=== PATIENT | male | born 1960 | race Caucasian/White ===

== ENCOUNTER 2021-03-03 10:45 | Day surgery (SDC) | payer BC ==
[2021-03-01 08:20] VITALS: BMI 33.0
[~2021-03-03 10:45] MED LIST: ALBUTEROL NEB (CONC) 2.5 MG/0.5 ML INHALATION ONE; ATROPINE SULFATE 0.4 MG/ML 1 ML VIAL IM ONE; IV FLUID CONTINUATION 1,000 ML IV ONE; LACTATED RINGERS 1,000 ML IV SCH; LIDOCAINE 2% (PF) 20 MG/ML 5 ML VIAL INHALATION ONE; LIDOCAINE VISCOUS 300 MG/15 ML CUP MUCOUS MEM ONE
[2021-03-03 11:20] VITALS: RESP 16; TEMP 98.4
[2021-03-03] MEDS: LACTATED RINGERS 1,000 ML IV SCH ×2 (11:34→12:02)
[2021-03-03 11:38] LABS: Glucose,Whole Blood 105 mg/dL (75-99)
[2021-03-03] MEDS ORDERED: MIDAZOLAM 2 MG/2 ML VIAL ONE (12:03)
[2021-03-03] MEDS ORDERED: fentaNYL (PF) 50 MCG/ML 2 ML AMP ONE (12:03)
[2021-03-03] MEDS ORDERED: LIDOCAINE 1% INJ 10MG/ML (20 ML MDV) ONE (12:03)
[2021-03-03] MEDS ORDERED: PROPOFOL 10 MG/ML 20 ML VIAL IV ONE (12:03)
[2021-03-03] MEDS ORDERED: KETAMINE 10 MG/ML 20 ML VIAL ONE (12:03)
[2021-03-03] MEDS ORDERED: LIDOCAINE 2% INJ 20 MG/ML INTRATRACH ONE (12:16)
[2021-03-03 12:35] VITALS: PULSE 82
[2021-03-03 12:50] VITALS: BP 129/75
[2021-03-03 16:41] LABS: Appearance,BF Hazy
[2021-03-03 16:42] LABS: Nucleated Cells, Body Fluid 67 /uL; RBC, Body Fluid 277 /uL
[2021-03-03 16:46] LABS: Mononuclear WBC,Body Fluid 21 %; Polynuclear WBC,Body Fluid 78 %; Total Cells Counted,Body Fluid 100
--- NOTE | 2021-03-03 16:52 | PCN ---
PROCEDURE NOTE PROCEDURE PERFORMED: Bronchoscopy, airway examination, therapeutic lavage, BAL right middle lobe. PREOPERATIVE DIAGNOSIS: Hemoptysis. POSTOP DIAGNOSIS: Hemoptysis. OPERATORS: Dr. Odom, Dr. Tavarez. There was informed consent and universal timeout. ANESTHESIA: Anesthesia provided general anesthesia. The patient's procedure was done in room #2 endoscopy. DESCRIPTION OF PROCEDURE: After the patient was adequately sedated and being fully monitored, the bronchoscope was inserted through the right nostril. It passed through the right nasopharynx into the oropharynx. The hypopharynx was identified. The anterior commissure, true cords, false cords, arytenoids, piriform sinuses, right and left, vallecula, and epiglottis, all appeared normal. Next, after topicalization, the bronchoscope was pushed through the glottic opening into the trachea. The trachea itself appeared normal. There was no bleeding. There was no mass or tumor. The tracheal umesh was sharp. The right and left mainstem was topicalized. The right upper lobe and its 3 segments, right middle lobe and its 2 segments and the right lower lobe and its 5 segments all appeared normal. There was no bleeding, mass, tumor, or any other abnormality noted. On the left side, the left upper lobe proper and its 2 segments, the lingula and its 2 segments and the left lower lobe and its 4 segments all appeared normal. Again, no mass tumor and/or gross abnormality noted. There was no bleeding. The patient tolerated the procedure well up to this point. The bronchoscope was wedged into the right middle lobe. We did a BAL. The fluid will be sent for analysis. There was no additional recommendations. The bronchoscope was withdrawn and the patient will be recovered. The patient tolerated the procedure very well. MMODL / IJN: [id number] /
== END 2021-03-03 13:04 | disposition home or self-care (01) ==
LOC: ORWHC2ENDO 10:45
PROVIDERS: ATTEND Internal Medicine Critical Care Medicine
DX: R04.2 Hemoptysis (principal); K21.9 Gastro-esophageal reflux disease without esophagitis; Z79.82 Long term (current) use of aspirin; Z86.73 Personal history of transient ischemic attack (TIA), and cerebral infarction without residual deficits; Z87.891 Personal history of nicotine dependence
CPT/HCPCS: 31624; 88108; 88305; 89050; 87252; 87070; 87205; 87116; 87102; 87206; J2001 ×2; J2250; J0461; J3010; J2704; 87496; 87498; 87502; 87529; 87634; 87798

== ENCOUNTER 2022-12-02 05:43 | Day surgery (SDC) | payer BC ==
[2022-11-30 15:10] VITALS: BMI 31.5
[~2022-12-02 05:43] MED LIST changes: -ALBUTEROL NEB (CONC) 2.5 MG/0.5 ML INHALATION ONE; -ATROPINE SULFATE 0.4 MG/ML 1 ML VIAL IM ONE; -IV FLUID CONTINUATION 1,000 ML IV ONE; +LIDOCAINE 1% (10MG/ML) FOR IV START INTRADERMA PRN; -LIDOCAINE 2% (PF) 20 MG/ML 5 ML VIAL INHALATION ONE; -LIDOCAINE VISCOUS 300 MG/15 ML CUP MUCOUS MEM ONE
[2022-12-02 06:42] LABS: Glucose,Whole Blood 143 mg/dL (70-110)
[2022-12-02 06:43] VITALS: TEMP 97
[2022-12-02] MEDS ORDERED: PROPOFOL 10 MG/ML 20 ML VIAL IV ONE (07:00)
[2022-12-02] MEDS ORDERED: fentaNYL (PF) 50 MCG/ML 2 ML AMP ONE (07:00)
[2022-12-02] MEDS ORDERED: LIDOCAINE 2% INJ 20 MG/ML (2 ML VIAL) ONE (07:00)
[2022-12-02] MEDS ORDERED: MIDAZOLAM 2 MG/2 ML VIAL ONE (07:00)
--- NOTE | 2022-12-02 07:26 | P.PCN ---
Date of Procedure: 12/02/22 Procedure(s) Performed: Brief history: Patient is a pleasant 62-year-old white male scheduled for an elective upper endoscopy as well as colonoscopy as a part of evaluation of epigastric pain for the last 1 year duration. Also has prior history of colon polyps. Procedure performed: Esophagogastroduodenoscopy with biopsy and cautery using a gold probe Colonoscopy with biopsy Preoperative diagnosis: Epigastric pain History of colon polyps Anesthesia: MAC Procedure: After informed consent was obtained from the patient was brought into the endoscopy unit and IV sedation was administered by anesthesia under continuous monitoring. Initially upper endoscopy was done. The Olympus GF 160 video endos cope was inserted inserted into the mouth and esophagus intubated without any difficulty and was gradually advanced into the stomach and duodenum and carefully examined. The bulb and second part of the duodenum appeared normal. 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 There was mild gastritis noted and biopsies were done from this area. The cause of the body, cardia and fundus appeared normal. The scope was then withdrawn into the esophagus. Small hiatal hernia noted. The GE junction was located at 40 cm to the incisors. It appeared regular with erosions consistent with LA grade B reflux esophagitis.. Rest of the esophagus appeared normal. Patient tolerated the procedure well. At this time the patient continued to remain sedation. Initial digital rectal examination was normal. Olympus CF 160 video colonoscope was then inserted into the rectum and gradually advanced to the cecum without any difficulty. Careful examination was performed as the scope was gradually being withdrawn. The prep was excellent. The cecum, ascending colon, appeared normal. In the transverse colon there was a millimeters polyp that was removed by cold biopsy. Rest of the transverse colon, descending colon, sigmoid colon and rectum appeared normal. Scattered sigmoid diverticulosis seen. Retroflexion was performed in the rectum and no lesions were noted. Patient tolerated the procedure well. Impression: 1. 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 Colonoscopy revealed a 3 mm transverse colon polyp status post cold biopsy and scattered sigmoid diverticulosis Recommendations: Findings of this examination were discussed with the patient as well as his family. He was advised to follow with the biopsy results. In the meantime recommended a trial of Pepcid 20 mg twice daily and follow antireflux measures. Repeat colonoscopy in 5 years because of the history of colon polyps
[2022-12-02 07:46] VITALS: BP 131/75; PULSE 67; RESP 18
== END 2022-12-02 08:03 | disposition home or self-care (01) ==
LOC: ORWHC2ENDO 05:43
PROVIDERS: ATTEND Internal Medicine Gastroenterology
DX: Z12.11 Encounter for screening for malignant neoplasm of colon (principal); K29.50 Unspecified chronic gastritis without bleeding; D12.3 Benign neoplasm of transverse colon; Q27.30 Arteriovenous malformation, site unspecified; K44.9 Diaphragmatic hernia without obstruction or gangrene; K57.30 Diverticulosis of large intestine without perforation or abscess without bleeding; I10 Essential (primary) hypertension; K21.00 Gastro-esophageal reflux disease with esophagitis, without bleeding; F10.90 Alcohol use, unspecified, uncomplicated; R73.09 Other abnormal glucose; K21.9 Gastro-esophageal reflux disease without esophagitis; Z86.010 Personal history of colon polyps; Z87.891 Personal history of nicotine dependence; Z86.73 Personal history of transient ischemic attack (TIA), and cerebral infarction without residual deficits; Z79.82 Long term (current) use of aspirin; Z79.899 Other long term (current) drug therapy; Z88.8 Allergy status to other drugs, medicaments and biological substances
CPT/HCPCS: 88305; 45380; 43239; 43270; J2250; J3010; J2704; J2001